=== PATIENT | male | born 1965 | race Caucasian/White ===

== ENCOUNTER 2020-10-24 01:59 | Inpatient (IN) | payer MEDICAID ==
[~2020-10-24] VITALS: Ht 170.2 cm; Wt 64.5 kg
[2020-10-24] VITALS (8 sets, daily range): BP systolic 111–128; BP diastolic 58–79; Ht 170.2 cm; Wt 64.5 kg
--- NOTE | 2020-10-24 08:13 | NUR ---
NS INFUSION AND CARDIZEM GTT STOPPED IN ER AT 08 BUT CONT'D IN HOSPITAL
[2020-10-24] MEDS ORDERED: OXYCONTIN60 MG PO (09:25)
[2020-10-24] MEDS ORDERED: AMBIEN5 MG PO (09:33)
[2020-10-24] MEDS ORDERED: LOPRESSOR25 MG PO (09:33)
[2020-10-24] MEDS ORDERED: NEURONTIN 300300 MG PO (09:34)
[2020-10-24] MEDS ORDERED: OXY IR30 MG PO (09:36)
[2020-10-24 11:25] LABS: BASOPHILS 0.8 % (0-2); EOSINOPHILS 0.8 % (0-7); HEMATOCRIT 36.1 % (42.0-54.0); HEMOGLOBIN 11.6 g/dL (13.5-17.5); LYMPHOCYTES 12.5 % (15-50); MCHC 32.2 g/dL (31.0-37.0); MCV 77.6 fL (80.0-100.0); MEAN PLATELET VOLUME 7.8 fL (7.4-10.4); MONOCYTES 7.4 % (2-11); NEUTROPHILS 78.5 % (40-80); PLATELET COUNT 342 10x3/uL (130-400); RBC 4.66 10x6/uL (4.20-6.10); RDW 17.2 % (11.5-14.5); WBC 8.4 10x3/uL (4.8-10.8)
[2020-10-24 11:57] LABS: ALBUMIN 2.5 g/dL (3.4-5.0); ALKALINE PHOSPHATASE 104 U/L (30-120); ALT (SGPT) 9 U/L (10-68); BILIRUBIN - TOTAL 0.23 mg/dL (0.2-1.3); CALC OSMOLALITY 274 mosm/kg (275-300); CALCIUM 8.2 mg/dL (8.5-10.1); CARBON DIOXIDE 26.3 mmol/L (21.0-32.0); CHLORIDE - SERUM 101 mmol/L (98-107); CREATININE - SERUM 0.7 mg/dL (0.6-1.3); GLUCOSE 173 mg/dL (74-106); LIPASE 51 U/L (73-393); MAGNESIUM - SERUM 1.8 mg/dL (1.8-2.4); PRO BNP 1751 pg/mL (0-125); PROTEIN - SERUM 7.1 g/dL (6.4-8.2); SODIUM 136 mmol/L (136-145); UREA NITROGEN 9 mg/dL (7-18); eGFR NON AFRICAN AMERICAN > 90 mL/min (90-120)
[2020-10-24 12:11] LABS: TROPONIN-I 0.184 ng/mL (0.000-0.060)
[2020-10-24] MEDS ORDERED: OMEPRAZOLE40 MG PO (14:27)
--- NOTE | 2020-10-25 03:13 | NUR ---
I have reviewed this patient and I concur with the Shift Assessment completed by the Licensed Practical Nurse today this shift.
[2020-10-25 05:11] VITALS: BP 109/69
--- NOTE | 2020-10-25 07:17 | NUR ---
RECEIVED BEDSIDE REPORT RESIDENT REMAINS ON ROOM AIR. NO CURRENT PAIN OR DISTRESS VOICED. RESP EVEN AND UNLABORED. IV TO LEFT FORE ARM PATENT RUNNING CARDIZEM.
--- NOTE | 2020-10-25 08:00 | NUR ---
PATIENT AWAKE AND ALERT, NO CURRENT PAIN OR DISTESS NOTED. RESP EVEN AND UNLABORED ON ROOM AIR. IV TO LEFT FOREARM WITH CARDIZEM EDRIP. PATIENT IS UP AT [place]. HEART SOUNDS REGULAR RATE AND RYTHYM. TELE RUNNING SINUS RYTHYM WITH FLUTTER ON OCCASSION. PATIENT IS IN CONTINUOUS PAIN DUE TO OTHER DIAGNOSIS.
--- NOTE | 2020-10-25 08:06 | NUR ---
PATIENT AWAKE AND ALERT, PAIN LEVEL MAINTAINED BY OXCOTIN. RESP EVEN AND UNLABORED. PATIENT IS VERY TALKATIVE. NO DISTRESS NOTED. IV RUNNING CARDIZEM AT 10. LUNG SOUNDS WET IN LOWER LOBES. SOME CRACKLES NOTED. HEART SOUNDS REGULAR RATE AND RYTHYM. ABLE TO MAKE NEEDS KNOWN AMBULATORY AROUND ROOM.
[2020-10-25 09:00] VITALS: BP 97/58
[2020-10-25 09:32] LABS: BASOPHILS 1.1 % (0-2); EOSINOPHILS 3.3 % (0-7); HEMATOCRIT 36.5 % (42.0-54.0); HEMOGLOBIN 11.7 g/dL (13.5-17.5); LYMPHOCYTES 16.2 % (15-50); MCV 78.1 fL (80.0-100.0); MEAN PLATELET VOLUME 7.9 fL (7.4-10.4); MONOCYTES 9.7 % (2-11); NEUTROPHILS 69.7 % (40-80); PLATELET COUNT 337 10x3/uL (130-400); RBC 4.68 10x6/uL (4.20-6.10); RDW 16.5 % (11.5-14.5); RETIC 2.31 % (0.45-2.28); WBC 9.2 10x3/uL (4.8-10.8)
[2020-10-25 09:50] LABS: % SATURATION 11 % (15-55); IRON 20 ug/dl (35-150); TOTAL IRON BIND CAPACITY 178 ug/dl (260-445); UNSAT IRON BIND CAPACITY 158 ug/dl (150-375)
[2020-10-25 10:09] LABS: ALBUMIN 2.6 g/dL (3.4-5.0); ALKALINE PHOSPHATASE 105 U/L (30-120); BILIRUBIN - TOTAL 0.32 mg/dL (0.2-1.3); CALC OSMOLALITY 278 mosm/kg (275-300); CALCIUM 8.1 mg/dL (8.5-10.1); CARBON DIOXIDE 31.1 mmol/L (21.0-32.0); CHLORIDE - SERUM 101 mmol/L (98-107); CREATININE - SERUM 0.8 mg/dL (0.6-1.3); FERRITIN 627 ng/mL (3-244); GLUCOSE 128 mg/dL (74-106); MAGNESIUM - SERUM 1.8 mg/dL (1.8-2.4); PHOSPHOROUS 3.5 mg/dL (2.5-4.9); POTASSIUM - SERUM 3.9 mmol/L (3.5-5.1); PROTEIN - SERUM 7.2 g/dL (6.4-8.2); SODIUM 139 mmol/L (136-145); UREA NITROGEN 11 mg/dL (7-18); eGFR NON AFRICAN AMERICAN > 90 mL/min (90-120)
[2020-10-25 10:13] LABS: ALT (SGPT) 12 U/L (10-68)
[2020-10-25] MEDS ORDERED: NICODERM CQ1 EAC3 TRANSDERM (11:45)
[2020-10-25] MEDS ORDERED: BETAPACE 80 MG80 MG PO (11:45)
[2020-10-25] MEDS ORDERED: OMNICEF300 MG PO (11:46)
[2020-10-25] MEDS ORDERED: AZITHROMYCIN500 MG PO (11:46)
[2020-10-25] MEDS ORDERED: MUCINEX600 MG PO (11:46)
[2020-10-25] MEDS ORDERED: FLORAJEN DIGES1 EACH PO (11:46)
[2020-10-25] MEDS ORDERED: TESSALON PERLE100 MG PO (11:46)
[2020-10-25 12:00] VITALS: BP 128/69
--- NOTE | 2020-10-25 12:38 | NUR ---
I have reviewed this patient and I concur with the Shift Assessment completed by the Licensed Practical Nurse today this shift.
== END 2020-10-25 14:40 | disposition home or self-care (01) | DRG 308 ==
LOC: D.ER 01:59 → D.EDHOLD 02:49 → D.M2 02:49
PROVIDERS: Family Medicine; ADMIT Emergency Medicine; ATTEND Emergency Medicine
DX: I48.91 Unspecified atrial fibrillation (principal); J18.9 Pneumonia, unspecified organism; I10 Essential (primary) hypertension; I25.10 Atherosclerotic heart disease of native coronary artery without angina pectoris; J43.9 Emphysema, unspecified; K21.9 Gastro-esophageal reflux disease without esophagitis; D50.9 Iron deficiency anemia, unspecified; R73.9 Hyperglycemia, unspecified; F41.9 Anxiety disorder, unspecified; M81.0 Age-related osteoporosis without current pathological fracture; G89.29 Other chronic pain; M54.9 Dorsalgia, unspecified; I48.92 Unspecified atrial flutter; I47.1 Supraventricular tachycardia; Z85.118 Personal history of other malignant neoplasm of bronchus and lung